=== PATIENT | male | born 1985 | race Caucasian/White ===

== ENCOUNTER 2018-02-18 14:29 | Emergency (ER) | payer SELFPAY ==
[2018-02-18 14:30] VITALS: BP 166/116; PULSE 75; RESP 16; TEMP 36.7; O2SAT 97; BMI 42.8
--- NOTE | 2018-02-18 15:21 | ED.DCSUM_ITS ---
- ER Visit Summary Date of Service: 02/18/18 Chief Complaint: Cough History of Present Illness: The patient is a 32 M with a cough for 2 weeks. He has some occasional clear sputum. Associated with right side chest pain that wraps around to the back. No shortness of breath. He does have subjective fevers, nasal congestion, and a dry, sore throat. No abdominal pain or GI symptoms. No leg swelling. No history of DVT or PE. No history of recent surgery or travel. No immobilization. No leg pain or swelling. No history of cancer. No history of lung disease or heart disease. Occasional smoker. Physical Examination: Afebrile and vital signs unremarkable except for a blood pressure 166/116. No acute distress. Sitting, breathing, speaking comfortably. HEENT exam unremarkable. Heart regular rate and rhythm. Lungs clear in all guillaume. Skin normal in color. Calves soft and supple. Test Results: Chest x-ray is pending. Emergency Department Course and Treatment: Patient is PERC negative. Nothing to suggest ACS or vascular disease. This sounds infectious. Will check an x-ray and treat accordingly. X-rays negative. Given the duration of his symptoms, he will be treated for this case and presumed bronchitis. He was given a prescription for doxycycline and Tessalon Perles. Return for any new or worsening symptoms. Treatment Plan: As above Disposition: Discharge Impression: 1. Acute bronchitis This note was generated with [employer] dictation software. It may contain incorrect words, spelling, and punctuation that were not noted in review of the chart prior to signing ED Disposition - Plan for ED Patient: Chief Complaint: Cough Referrals: Care Physician,No Primary [Primary Care Provider] -
--- NOTE | 2018-02-18 15:33 | RAD_ITS ---
STUDY: X-RAY CHEST REASON FOR EXAM: Male, 32 years old. Cough for one month. TECHNIQUE: PA and lateral views of the chest. COMPARISON: Prior comparison studies are not available for review at this time. FINDINGS: The lungs are clear and expanded. There is no demonstrated pleural abnormality. Normal size heart. Normal mediastinum and rosalva. Normal visualized pulmonary arteries. Normal visualized aortic arch and descending thoracic aorta. Normal visualized thoracic spine. Normal visualized ribs, clavicles, and shoulders. There is no demonstrated abnormality of the visualized soft tissue structures of the upper abdomen. RAD/Chest PA and Lateral IMPRESSION: No active pulmonary disease. Electronically Signed: Alberto Jiménez MD at 15:43 EDT Tel , Service support ,
--- NOTE | 2018-02-18 15:50 | ED.DEP ---
ED Disposition - Plan for ED Patient: Chief Complaint: Cough Instructions: ED Upper Resp Infec Abx Tx Prescriptions: Benzonatate [Tessalon Perle] 100 mg PO TID PRN PRN #15 cap PRN Reason: Cough Doxycycline Monohydrate 100 mg PO BID #14 cap
[2018-02-18 16:08] VITALS: BP 150/90; PULSE 100; RESP 18; O2SAT 98
--- NOTE | 2018-02-20 10:56 | CM.ED ---
ED CALLBACK: Follow-up call placed to patient with no answer. Voicemail left with return contact information.
== END 2018-02-18 16:10 | disposition home or self-care (01) ==
PROVIDERS: Emergency Provider Emergency Medicine
DX: J20.9 Acute bronchitis, unspecified (principal); Z72.0 Tobacco use
CPT/HCPCS: 71046; 99282

== ENCOUNTER 2018-04-27 06:39 | Emergency (ER) | payer MEDICAID, SELFPAY ==
[2018-04-27 06:40] VITALS: BP 193/111; PULSE 83; RESP 18; TEMP 36.6; O2SAT 96; BMI 42.4
--- NOTE | 2018-04-27 06:56 | CT_ITS ---
STUDY: CTA CHEST REASON FOR EXAM: Male, 33 years old. 2 month history of chest pain. Patient has a history of a benign spinal tumor. RADIATION DOSAGE (If Supplied By Facility): CTDIvol = ( 25.87 ) mGy, DLP = ( 1041.96 ) mGycm TECHNIQUE: The examination was performed with the intravenous administration of 100mL ml of Isovue 370 contrast material. Post-processing of the angiographic images was performed, with multiplanar reformation and 3D reconstruction. Individualized dose optimization techniques were used for this CT. COMPARISON: None. FINDINGS: There is a 2.2 cm x 2.3 cm rounded soft tissue density arising from the right intervertebral foramen on the T8 vertebrae. This is suggestive of a neurofibroma or schwannoma. Normal enhancement of the main pulmonary artery and right and left pulmonary arteries. Normal enhancement of the bilateral peripheral pulmonary arteries. There is no demonstrated pulmonary embolism. Normal thoracic aorta and visualized great vessels. There is no demonstrated aortic dissection. Normal heart and pericardium. There are visualized mediastinal lymph nodes, which are within normal size limits, and with normal morphology. Normal hilar regions. Normal visualized trachea and bronchi. The lungs are well expanded. Normal pulmonary parenchyma. Normal pleura. Normal chest wall structures. Normal osseous structures. Normal visualized upper abdomen. CT/CTA Chest W/WO Contrast IMPRESSION: Normal CTA chest examination, without a demonstrated pulmonary embolism or arterial dissection. 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 Electronically Signed: Jimmie Alcantar MD at 8:39 EST Tel [phone], Service support ,
--- NOTE | 2018-04-27 06:56 | EKG12_ITS ---
Test Reason : BACK Blood Pressure : / mmHG Vent. Rate : 084 BPM Atrial Rate : 084 BPM P-R Int : 148 ms QRS Dur : 100 ms QT Int : 370 ms P-R-T Axes : 031 001 072 degrees QTc Int : 437 ms Normal sinus rhythm Moderate voltage criteria for LVH, may be normal variant Borderline ECG Confirmed by SHAHZAD SIERRA, JR ([id number]), manuscript editor SHANDA QUINTANA ([id number]) on 05/02/2018 11:14:59 AM Referred By: OSEAS Confirmed By:JR PIKE MD
[2018-04-27 07:25] LABS: Absolute Lymphocyte Count 3.62 X10^3/ul (0.83-4.51); Absolute Neutrophil Count 4.6 X10^3/uL (2.0-7.7); Basophil# 0.05 X10^3/uL; Basophil% 0.6 % (0-1); Eosinophil# 0.12 X10^3/uL; Eosinophils% 1.4 % (0-5); Hematocrit 40.4 % (40-54); Hemoglobin 13.9 g/dl (13.0-16.5); Lymphocyte # 3.62 X10^3/ul (4.0); Lymphocyte % 41.1 % (19-41); Mean Corp Hgb Conc 34.4 g/gl (32-36); Mean Corpuscular Hgb 27.5 pg (27.0-32.0); Mean Corpuscular Volume 79.8 fL (80-94); Mean Platelet Vol. 9.7 fl (6.2-12.0); Monocyte# 0.41 X10^3/uL; Monocyte% 4.7 % (0-10); Neutrophil % 52.1 % (47-70); Platelet Count 319 K/mm3 (150-450); RBC Distribution Width CV 13.1 % (11.6-14.6); RBC Distribution Width SD 37.6 fl (35.1-43.9); Red Blood Count 5.06 M/mm3 (4.6-6.2); White Blood Count 8.8 K/mm3 (4.4-11.0)
[2018-04-27] MEDS: 0.9% Normal Saline 1,000 ML 1000 ML IV (07:25)
[2018-04-27] MEDS: Morphine 4 MG/ML Syringe IV ×2 (07:25→08:35)
[2018-04-27 07:27] LABS: POSITIVE COUNT NO; POSITIVE DIFFERENTIAL NO; POSITIVE MORPHOLOGY NO
[2018-04-27 07:39] LABS: Anion Gap 10 (5-15); BUN 8 mg/dL (7-18); BUN/Creat Ratio 8.3 RATIO (10-20); Calcium,Total 8.7 mg/dL (8.5-10.1); Chloride 105 mmol/L (98-107); Creatinine, Serum 0.96 mg/dL (0.70-1.30); EST Glomerular Filtration Rate 96 mL/min (>60); Est Glom Filt Rate - Afr Amer 116 mL/min (>60); Estimated Creatinine Clearance 113.01 ml/min; Glucose 118 mg/dL (74-106); Potassium 3.5 mmol/L (3.5-5.1); Sodium Level 139 mmol/L (136-145)
[2018-04-27 07:43] VITALS: BP 162/104; PULSE 98; RESP 18; O2SAT 98
--- NOTE | 2018-04-27 07:49 | ED.VISSUMM ---
- ER Visit Summary Date of Service: 04/27/18 Chief Complaint: Back pain History of Present Illness: The patient is a 33 M with back pain that has been going on for about 2 months. He was hoping it would go away, but it got suddenly worse. He has some associated chest pain or shortness of breath with sweats. He has paresthesias in his arms. His blood pressure has been up. He does have a history of schwannoma and had prior thoracic spine surgery. Denies any history of cardiac disease, PE, or dissection. Physical Examination: Blood pressure 193/111. Otherwise vitals normal. Afebrile. Patient appears depressed and uncomfortable. Diaphoretic. Heart regular rate and rhythm. Lungs clear. Abdomen soft. Mid T spine tender to palpation. Subjective paresthesias in upper extremities. Good strength and range of motion. Normal pulses. The remainder of his exam is unremarkable. Test Results: EKG showed sinus rhythm at a rate of 84. CBC, BMP, troponin unremarkable. CTA pending. Emergency Department Course and Treatment: Patient may have myofascial back pain. I also considered pain from his schwannomas. I am also concerned because he has pain in his chest, he is hypertensive and diaphoretic. Treated with morphine and fluids. Will check EKG, labs, CTA. Lab work including troponin unremarkable. EKG showed sinus rhythm at a rate of 84. CT showed a 2.2 x 2.3 cm right side T8 mass concerning for schwannoma at the intervertebral foramen. Patient required additional pain medicine and Zofran. On reevaluation, he is much more comfortable. Diaphoresis has resolved. Blood pressure is 120/80. Patient will call his spine surgeon today for follow-up. He was given a prescription for Percocet and Zofran. Return for any new or worsening issues. Treatment Plan: As above Disposition: Discharge Impression: 1. Back pain 2. T8 schwannoma This note was generated with [employer] dictation software. It may contain incorrect words, spelling, and punctuation that were not noted in review of the chart prior to signing ED Disposition - Plan for ED Patient: Chief Complaint: Back Referrals: Care Physician,No Primary [Primary Care Provider] -
[2018-04-27] MEDS: Ondansetron 4 MG/2 ML Vial IV (08:33)
[2018-04-27 08:37] VITALS: BP 120/80; PULSE 63; RESP 18; O2SAT 97
--- NOTE | 2018-04-27 09:10 | ED.DEP ---
ED Disposition - Plan for ED Patient: Chief Complaint: Back Instructions: Common Myths About Pain Medications Prescriptions: Oxycodone HCl/Acetaminophen [Percocet 5/325] 1 tab PO Q6H PRN PRN 3 Days #12 tab PRN Reason: Pain Ondansetron [Zofran Odt] 4 mg PO Q8H PRN PRN #10 tab PRN Reason: Nausea Additional Instructions: call your spine surgeon today
[2018-04-27 10:16] VITALS: BP 95/73; PULSE 92; RESP 18; O2SAT 93
== END 2018-04-27 10:17 | disposition home or self-care (01) ==
PROVIDERS: Emergency Provider Emergency Medicine
DX: M54.9 Dorsalgia, unspecified (principal); D36.14 Benign neoplasm of peripheral nerves and autonomic nervous system of thorax; R07.9 Chest pain, unspecified; R06.02 Shortness of breath; R20.2 Paresthesia of skin; I10 Essential (primary) hypertension
CPT/HCPCS: 71275; 80048; 84484; 85025; 93005; 96361; 96374; 96375; 96376; 99285; J7030; Q9967; A4216; J2405

== ENCOUNTER 2019-11-01 11:48 | Emergency (ER) | payer SELFPAY ==
[2019-11-01 11:49] VITALS: BP 138/82; PULSE 106; RESP 17; TEMP 36.1; O2SAT 95; BMI 41.8
--- NOTE | 2019-11-01 11:59 | EKG12_ITS ---
Test Reason : DYSRHYTHMIA Blood Pressure : / mmHG Vent. Rate : 090 BPM Atrial Rate : 090 BPM P-R Int : 142 ms QRS Dur : 096 ms QT Int : 352 ms P-R-T Axes : 024 008 080 degrees QTc Int : 430 ms Normal sinus rhythm Minimal voltage criteria for LVH, may be normal variant Borderline ECG Confirmed by ASHLY SIERRA, CHUCKY ([id number]), loan expeditor IVANIA PATEL ([id number]) on 11/05/2019 8:10:26 AM Referred By: KAILEE Confirmed By:CHUCKY LIMON MD
[2019-11-01 12:15] VITALS: PULSE 110; RESP 20
[2019-11-01] MEDS: Albuterol 2.5 MG/3 ML VIAL.NEB. INHALATION (12:15)
[2019-11-01] MEDS: Ipratropium/Albuterol Sulfate 3 ML AMPUL.NEB INHALATION (12:15)
--- NOTE | 2019-11-01 12:32 | ED.VIS.GEN ---
History of Present Illness Chief Complaint: Cough Informant: Patient Onset: Month(s) Context: Gradual Onset Timing: Intermittent Current Severity: Moderate Maximum Severity: Moderate Narrative: The patient is a 34-year-old male with medical history significant for smoking who presents to the emergency department with cough and intermittent shortness of breath. The patient states he is been having the symptoms for the past 3 months. He states he is been to urgent care twice. He thinks his been on medications, but he does not know which. He denies any fevers or chills. He states when he exerts himself, he will feel dyspneic and will have cough and wheezing. He has continued to smoke. He denies any exposure to COVID. He denies orthopnea, leg edema, or history of pulmonary embolus. Prior similar symptoms: Yes Recent Illness/Hospitalization: No Past Medical History - Allergies and Home Meds Allergies/Adverse Reactions: Allergies naproxen Allergy (Verified 11/01/19 11:48) [facility] Primary Care Physician: Care Physician,No Primary [Primary Care Provider] - Prior records reviewed: Yes Past Medical History: None Surgical History: noncontributory Smoking Status: Never smoker Review of Systems General: Denies: Chills, Fever, Sweats Eyes: Denies: Visual changes - bilaterally, Diplopia ENT: Denies: Rhinorrhea, Sore throat Cardiovascular: Denies: Chest pain, Palpitations Respiratory: Reports: Dyspnea, Cough. Denies: Dyspnea on exertion Gastrointestinal: Denies: Abdominal pain, Nausea, Vomiting, Diarrhea, Melena, Hematochezia Genitourinary: Denies: Dysuria, Hematuria, Frequency Musculoskeletal: Denies: Back pain, Extremity Pain Skin: Denies: Rash, Wounds Neurological: Denies: Headache, Weakness, Numbness Physical Exam Vital Signs/Narrative: Vital Signs Temp Pulse Resp BP Pulse Ox 11/01/19 11:49 96.9 F L 106 H 17 138/82 H 95 Inital Vital Signs reviewed: Yes General: Well nourished, Well developed, No Acute Distress Head: Normocephalic, Atraumatic Eyes: Perrl, EOMI ENT: Moist mucous membranes, No rhinorrhea Neck: Supple, Nontender Cardiovascular: Regular rate, Regular rhythm, No murmurs Respiratory: No distress, Chest nontender, Wheezing, Decreased Air Movement Abdomen: Soft, Nontender, Nondistended, Normal bowel sounds Back: Nontender, Normal Inspection Extremities: Nontender, No edema Skin: Normal color, No rash Neurological: Alert, Oriented x3, Cranial nerves II-XII grossly intact, Normal Strength, Normal Sensation Psychological: Normal affect, Normal Mood Diagnostic/Tx/Re-eval - Medical Decision Making The patient presents with cough and shortness of breath. He said the symptoms for the past 3 months. He does have a scant wheeze. He is not hypoxic or tachypneic. I did obtain chest x-ray which was unremarkable. Labs and EKG were also unremarkable. I do feel that the patient likely has persistent bronchial inflammation. He has gone through 2 rounds of antibiotics with little improvement. After nebulized treatment, he is breathing easier. I do feel that a prolonged steroid burst and taper would be appropriate. He was also counseled on abstaining from smoking. He will be discharged home. Impression 1. Asthma with bronchospasm ED Disposition - Plan for ED Patient: Instructions: ED Bronchitis Asthmatic Prescriptions: Prednisone 10 mg PO DAILY #63 tab Prescription Printed Referrals: Care Physician,No Primary [Primary Care Provider] -
--- NOTE | 2019-11-01 12:35 | CPS ---
x1 Albuterol given to pt. in ED as well
[2019-11-01 12:51] LABS: Absolute Lymphocyte Count 4.97 X10^3/uL (0.83-4.51); Absolute Neutrophil Count 6.1 X10^3/uL (2.0-7.7); Basophil% 0.8 % (0-1); Eosinophil# 0.09 X10^3/uL; Eosinophils% 0.8 % (0-5); Hematocrit 45.4 % (40-54); Hemoglobin 15.2 g/dL (13.0-16.5); Lymphocyte # 4.97 X10^3/ul (4.0); Lymphocyte % 41.5 % (19-41); Mean Corp Hgb Conc 33.5 g/dL (32-36); Mean Corpuscular Hgb 27.6 pg (27.0-32.0); Mean Corpuscular Volume 82.5 fL (80-94); Mean Platelet Vol. 10.2 fl (6.2-12.0); Monocyte# 0.65 X10^3/uL; Monocyte% 5.4 % (0-10); NRBC Flagged by Analyzer 0 % (0-5); Neutrophil # 6.13 X10^3/uL (2.7-7.7); Neutrophil % 51.2 % (47-70); Platelet Count 333 K/mm3 (150-450); RBC Distribution Width SD 38.6 fl (35.1-43.9)
[2019-11-01 13:09] LABS: Anion Gap 7 (5-15); BUN 13 mg/dL (7-18); BUN/Creat Ratio 13.1 RATIO (10-20); Calcium,Total 9.1 mg/dL (8.5-10.1); Chloride 107 mmol/L (98-107); Creatinine, Serum 0.99 mg/dL (0.70-1.30); EST Glomerular Filtration Rate 91 mL/min (>60); Est Glom Filt Rate - Afr Amer 111 mL/min (>60); Estimated Creatinine Clearance 108.56 ml/min; Glucose 106 mg/dL (74-106); Potassium 3.6 mmol/L (3.5-5.1); Sodium Level 140 mmol/L (136-145)
--- NOTE | 2019-11-01 13:10 | RAD_ITS ---
STUDY: X-RAY CHEST REASON FOR EXAM: Male, 34 years old. COUGH AND SOB x2 MONTHS TECHNIQUE: PA and lateral views of the chest. COMPARISON: Comparison is made with prior study dated February 18, 2018. FINDINGS: The lungs are clear and expanded. There is no demonstrated pleural abnormality. Normal size heart. Normal mediastinum and rosalva. Normal visualized pulmonary arteries. Normal visualized aortic arch and descending thoracic aorta. Normal visualized thoracic spine. Normal visualized ribs, clavicles, and shoulders. There is no demonstrated abnormality of the visualized soft tissue structures of the upper abdomen. RAD/Chest PA and Lateral IMPRESSION: Normal x-ray examination of the chest. Electronically Signed: Jimmie Alcantar, at 14:01 EDT , Service support ,
[2019-11-01] MEDS: MethylPREDNISolone 125 MG/2 ML Vial IV (13:13)
[2019-11-01 13:16] VITALS: RESP 17; O2SAT 95
[2019-11-01 13:26] VITALS: BP 131/95; PULSE 101; RESP 24; TEMP 36.6; O2SAT 95
[2019-11-01 14:39] VITALS: BP 122/73; PULSE 98; RESP 20; TEMP 36.7; O2SAT 97
== END 2019-11-01 14:45 | disposition home or self-care (01) ==
PROVIDERS: Emergency Provider Emergency Medicine
DX: J45.909 Unspecified asthma, uncomplicated (principal); Z79.899 Other long term (current) drug therapy
CPT/HCPCS: 71046; 80048; 85025; 93005; 94640; 96374; 99284; A4216

== ENCOUNTER 2020-01-12 17:06 | Emergency (ER) | payer MEDICAID, SELFPAY ==
[2020-01-12 17:07] VITALS: BP 126/86; PULSE 87; RESP 14; TEMP 36.4; O2SAT 97; BMI 49.3
--- NOTE | 2020-01-12 17:36 | ED.VIS.GEN ---
History of Present Illness Chief Complaint: Abd Pain Informant: Patient Narrative: Patient is a 34-year-old male who presents to the emergency department for right upper quadrant/midline abdominal pain. He states that this has been bothering him over the past couple of months. He was diagnosed with a abdominal wall hernia previously. This was an incidental finding and did not bother him at that time so he never got this evaluated further by his surgeon. He feels like this is starting to flareup. He has a 7-month at home and that has been sitting on his abdomen making his symptoms worse. Bending over seems to aggravate it as well. He does occasionally get nauseous but never had any episodes of vomiting. Denies any change in bowel habits. No constipation, diarrhea or blood in stool. He denies any fevers or chills. At this time he denies having any abdominal pain. He had 3 episodes today where it did flareup. He denies any previous abdominal surgeries. Denies any chest pain or shortness of breath. Past Medical History - Allergies and Home Meds Allergies/Adverse Reactions: Allergies naproxen Allergy (Verified 01/12/20 17:07) [facility] Primary Care Physician: Luis Reyes MD [STAFF PHYSICIAN] - 3-5 Days if not improving Care Physician,No Primary [Primary Care Provider] - Prior records reviewed: Yes Past Medical History: - - History of schwannomas requiring resection on the spine. Surgical History: noncontributory Smoking Status: Never smoker Review of Systems All systems negative except as indicated General: Denies: Chills, Fever, Sweats Eyes: Denies: Visual changes - bilaterally, Diplopia ENT: Denies: Rhinorrhea, Sore throat Cardiovascular: Denies: Chest pain, Palpitations Respiratory: Denies: Dyspnea, Cough, Dyspnea on exertion Gastrointestinal: Reports: Abdominal pain, Nausea. Denies: Vomiting, Diarrhea, Melena, Hematochezia Genitourinary: Denies: Dysuria, Hematuria, Frequency Musculoskeletal: Denies: Back pain, Extremity Pain Skin: Denies: Rash, Wounds Neurological: Denies: Headache, Weakness, Numbness Physical Exam Vital Signs/Narrative: Vital Signs Temp Pulse Resp BP Pulse Ox 01/12/20 17:07 97.6 F L 87 14 126/86 H 97 Inital Vital Signs reviewed: Yes General: Well nourished, Well developed, No Acute Distress Head: Normocephalic, Atraumatic Eyes: Perrl, EOMI ENT: Moist mucous membranes, No rhinorrhea Neck: Supple, Nontender Cardiovascular: Regular rate, Regular rhythm, No murmurs Respiratory: No distress, CTA bilaterally, Chest nontender Abdomen: Soft, Nontender, Nondistended, Normal bowel sounds, - - When patient lifts head off the bed a midline abdominal hernia present but reduces spontaneously. Back: Nontender, Normal Inspection Extremities: Nontender, No edema Skin: Normal color, No rash Neurological: Alert, Oriented x3 Psychological: Normal affect, Normal Mood Diagnostic/Tx/Re-eval - Medical Decision Making Patient presents emerge department for chronic abdominal pain. He believes that that is related to a hernia. Physical exam is benign without any reproducible abdominal pain. Vital signs within normal limits upon arrival. He is in no acute distress. Will check basic lab work. We will plan on referring to general surgery for further evaluation of this hernia since it is starting to cause him some pain now. No symptoms of obstruction. No symptoms or signs of incarceration. He has been asymptomatic throughout ED stay. Will recommend symptomatic treatment until he can be seen by general surgery. Patient understands and is agreeable this plan. Will discharge home in stable condition. ED Disposition - Plan for ED Patient: Disposition: Home or Assisted Living Diagnosis: Abdominal wall hernia, Abdominal pain Instructions: What Is a Hernia? Referrals: Care Physician,No Primary [Primary Care Provider] - Luis Reyes MD [STAFF PHYSICIAN] - 3-5 Days if not improving
[2020-01-12 17:57] LABS: Absolute Lymphocyte Count 3.47 X10^3/uL (0.83-4.51); Absolute Neutrophil Count 5.1 X10^3/uL (2.0-7.7); Basophil% 1.1 % (0-1); Eosinophil# 0.13 X10^3/uL; Eosinophils% 1.4 % (0-5); Hematocrit 42.3 % (40-54); Hemoglobin 14.1 g/dL (13.0-16.5); Lymphocyte # 3.47 X10^3/ul (4.0); Mean Corp Hgb Conc 33.3 g/dL (32-36); Mean Corpuscular Hgb 27.1 pg (27.0-32.0); Mean Corpuscular Volume 81.3 fL (80-94); Mean Platelet Vol. 9.9 fl (6.2-12.0); Monocyte# 0.61 X10^3/uL; Monocyte% 6.5 % (0-10); NRBC Flagged by Analyzer 0 % (0-5); Neutrophil # 5.06 X10^3/uL (2.7-7.7); Neutrophil % 53.9 % (47-70); Platelet Count 336 K/mm3 (150-450); RBC Distribution Width CV 12.7 % (11.6-14.6); RBC Distribution Width SD 37.6 fl (35.1-43.9); White Blood Count 9.4 K/mm3 (4.4-11.0)
[2020-01-12 18:14] LABS: ALB/GLOB Ratio 0.8 RATIO (0.9-2.4); AST(SGOT) 23 U/L (15-37); Alanine Aminotransfer ALT/SGPT 42 U/L (16-61); Albumin, Serum 3.6 g/dL (3.2-5.0); Alkaline Phosphatase 49 U/L (45-117); Anion Gap 8 (5-15); BUN 11 mg/dL (7-18); Calcium,Total 8.8 mg/dL (8.5-10.1); Chloride 105 mmol/L (98-107); EST Glomerular Filtration Rate 91 mL/min (>60); Est Glom Filt Rate - Afr Amer 110 mL/min (>60); Estimated Creatinine Clearance 90.54 ml/min; Globulin 4.4 g/dL (2.2-4.2); Glucose 103 mg/dL (74-106); Lipase 117 U/L (73-393); Potassium 3.6 mmol/L (3.5-5.1); Sodium Level 140 mmol/L (136-145)
[2020-01-12 18:37] VITALS: BP 145/93; PULSE 87; RESP 18
== END 2020-01-12 18:38 | disposition home or self-care (01) ==
PROVIDERS: Emergency Provider Emergency Medicine
DX: K43.9 Ventral hernia without obstruction or gangrene (principal); R10.11 Right upper quadrant pain; G89.29 Other chronic pain; R11.0 Nausea
CPT/HCPCS: 80053; 83690; 85025; 99282; A4216

== ENCOUNTER → 2020-01-21 08:45 | Outpatient (CLI) | payer MEDICAID, SELFPAY ==
[2020-01-15 15:24] VITALS: BMI 41.6
--- NOTE | 2020-01-21 08:46 | US_ITS ---
STUDY: ABDOMINAL ULTRASOUND - RIGHT UPPER QUADRANT REASON FOR VISIT: Male, 34 years old ruq pain x 3 months TECHNIQUE: Ultrasound evaluation of the right upper quadrant was performed with real-time and static turcios-scale imaging. TECHNICAL QUALITY: Adequate. COMPARISON: None. FINDINGS: Liver: The liver measures 18 cm. There is increased echogenicity consistent with fatty infiltration. The bile ducts are within normal limits. There is hepatic color flow. The direction of portal flow is hepatopetal. There is no demonstrated mass lesion. Gallbladder: Normal distended gallbladder. The gallbladder wall measures 2.2 mm. There is a negative sonographic Burks''s sign. There is no pericholecystic fluid. There are either 3 small polyps in the gallbladder versus gallbladder sludge balls. Largest of which measures 7 mm. Common Bile Duct (C.B.D.): The common bile duct measures 2.5 mm. Pancreas: Normal size of the head, body and tail of the pancreas. There is increased echogenicity of the pancreas. There is no demonstrated pancreatic mass or cyst. Right Kidney: Normal size of the right kidney. The right kidney measures 12 cm. Normal renal cortex. The right cortex measures 1.9 cm. There is no demonstrated renal mass or cyst. There is no right hydronephrosis. US/Gallbladder IMPRESSION: 1. Fatty steatosis of the liver 2. Possible gallbladder polyps versus small sludge balls 3. Nonspecific echogenicity of the pancreas Electronically Signed: Maxi Beckham DO at 12:47 EDT Tel , Service support ,
== END ==
PROVIDERS: Referring Provider Surgery; Visit Provider Surgery
DX: R10.9 Unspecified abdominal pain (principal)
CPT/HCPCS: 76705

== ENCOUNTER 2020-01-22 11:05 | Emergency (ER) | payer MEDICAID, SELFPAY ==
[2020-01-15 15:59] VITALS: BMI 49.3
[2020-01-22 11:06] VITALS: BP 131/88; PULSE 95; RESP 17; TEMP 35.4; O2SAT 97; BMI 41.5
[2020-01-22] MEDS: Acetaminophen 500 MG Tablet 1000 MG PO (11:51)
--- NOTE | 2020-01-22 11:55 | RAD_ITS ---
STUDY: X-RAY CHEST REASON FOR EXAM: Male, 34 years old. Productive cough, sore throat, congestion TECHNIQUE: Single AP portable view of the chest. COMPARISON: Comparison is made with prior study dated 11/01/2019. FINDINGS: The lungs are clear and expanded. There is no demonstrated pleural abnormality. Normal size heart. Normal mediastinum and rosalva. Normal visualized pulmonary arteries. Normal visualized aortic arch and descending thoracic aorta. Normal visualized thoracic spine. Normal visualized ribs, clavicles, and shoulders. There is no demonstrated abnormality of the visualized soft tissue structures of the upper abdomen. RAD/Chest 1 View (Portable) IMPRESSION: Normal x-ray examination of the chest. Electronically Signed: Jimmie Alcantar, at 12:14 EDT , Service support ,
--- NOTE | 2020-01-22 12:01 | ED.DCSUM_ITS ---
History of Present Illness Chief Complaint: Cold Sx Informant: Patient Onset: Yesterday Context: Gradual Onset Timing: Continuous Associated Symptoms: Nasal Congestion, Headache, Productive Cough Narrative: Patient is a 34-year-old male presenting with flulike symptoms. He states since yesterday he has had nasal congestion, hot and cold chills, sore throat and a mild cough. He notes his 7-month-old daughter was sick with a fever for the past few nights but has seemed improved. His significant other is also had some similar symptoms. He is a decreased appetite. Is not taking anything for his symptoms at home. He became concerned when he was blowing his nose and there was a red tinge/blood to it. Patient has been sweating all day. No other complaints at this time. Past Medical History - Allergies and Home Meds Allergies/Adverse Reactions: Allergies naproxen Allergy (Verified 01/22/20 11:08) Hives Primary Care Physician: Donald Hernandez MD [STAFF PHYSICIAN] - Past Medical History: None Surgical History: noncontributory Lives: Spouse/ Significant Other, With Family Smoking Status: Never smoker Review of Systems General: Reports: Chills, Fever, Malaise, Sweats, - - Decreased appetite Eyes: Denies: Visual changes - bilaterally, Diplopia ENT: Reports: Sore throat, - - Nasal congestion. Denies: Bilateral ear pain, Rhinorrhea Cardiovascular: Denies: Chest pain, Palpitations Respiratory: Reports: Cough, Sputum. Denies: Dyspnea, Dyspnea on exertion Gastrointestinal: Denies: Abdominal pain, Nausea, Vomiting, Diarrhea, Melena, Hematochezia Genitourinary: Denies: Dysuria, Hematuria, Frequency Musculoskeletal: Denies: Back pain, Extremity Pain Skin: Denies: Rash, Wounds Neurological: Denies: Headache, Weakness, Numbness Physical Exam Vital Signs/Narrative: Vital Signs Temp Pulse Resp BP Pulse Ox 01/22/20 11:06 95.7 F L 95 17 131/88 H 97 Inital Vital Signs reviewed: Yes General: Well nourished, Well developed, Obese Head: Normocephalic, Atraumatic Eyes: Perrl, EOMI Ears: Normal external canal, TM's clear Nose: No Rhinorrhea, Congestion Mouth/Throat: Normal Inspection, Airway Patent, Posterior Oropharyngeal Erythema Tonsils: Negative for: Right Tonsilar Erythema, Left Tonsilar Erythema, Right Tonsilar Exudates, Left Tonsilar Exudates Neck: Supple, Nontender Cardiovascular: Regular rate, Regular rhythm, No murmurs Respiratory: No distress, CTA bilaterally, Chest nontender Abdomen: Soft, Nontender, Nondistended, Normal bowel sounds Back: Nontender, Normal Inspection Extremities: Nontender, No edema Skin: Normal color, No rash, - - Sweating during exam Neurological: Alert, Oriented x3, Cranial nerves II-XII grossly intact, Normal Strength, Normal Sensation Psychological: Normal affect Diagnostic/Tx/Re-eval Chest X-Ray - ED: 1 View, Read by ED Physician, Read by Radiologist, No Acute Disease Clinical Impression(s) from Imaging Studies Chest X-Ray 01/22/20 11:55 IMPRESSION: Normal x-ray examination of the chest. Electronically Signed: Jimmie Alcantar, at 12:14 EDT , Service support , - Medical Decision Making Patient is evaluated for sweats, nasal congestion and cough. He is hemodynamically stable and does not have a fever in the ER. Patient appears he does not feel good but is otherwise well-appearing. He is given Tylenol in the ER and I did obtain a chest x-ray as he reports he is having hemoptysis. I suspect this is all upper respiratory. His orange sputum is actually blood- tinged sputum that I suspect is from his sinuses. Chest x-rays not show any acute process. Patient will be swabbed for coronavirus given his symptoms and the current pandemic. Patient is counseled on return precautions. He is encouraged to quarantine until his results come back as he potentially could have COVID-19. He is instructed to take [id number] decongestant/cold and flu medication for her symptoms. He is discharged home in stable condition. ED Disposition - Plan for ED Patient: Disposition: Home or Assisted Living Diagnosis: Suspected COVID-19 virus infection, Viral upper respiratory illness Instructions: ED URI Viral Prescriptions: Dm/PE/Acetaminophen/Doxylamine [Cold & Relief Plus Liquid Gel] 1 ea PO Q6H PRN PRN #20 cap.seq PRN Reason: Cold Symptons Transmission Status: Received by [id number] Referrals: Donald Hernandez MD [STAFF PHYSICIAN] - Additional Instructions: I suspect you have a respiratory illness of some sort. Is possible it could be COVID. Please quarantine and stayed home until your COVID results have returned. Drink plenty of fluids.
== END 2020-01-22 12:43 | disposition home or self-care (01) ==
PROVIDERS: Emergency Provider Emergency Medicine
DX: J06.9 Acute upper respiratory infection, unspecified (principal); R04.2 Hemoptysis; E66.9 Obesity, unspecified
CPT/HCPCS: 71045; 87635; 99283; U0003

== ENCOUNTER → 2020-11-28 07:04 | Outpatient (CLI) | payer BC, MEDICAID, SELFPAY ==
[2020-02-04 09:12] VITALS: BMI 41.5
--- NOTE | 2020-11-28 | ASPOS_PTH ---
PATIENT: KHOA CARDENAS LOC: [place] U#:[id number] AGE/SX: 39/M ROOM: RE11/28/[address]: Dr. Robert Gonzalez MD : 1985 BED: DIS: SPEC #: [id number] RECD: 11/28/20 10:29 STATUS: RAFAEL LOYDA #: [id number] SAVANNAH: 11/28/20 00:[address]: Robert Gonzalez DEPT: CYTOLOGY RECD BY: Charles Auguste ENTERED: 11/28/20 10:29 SP TYPE: ASP HERE OTHR DR: No Primary Care Phys Tissues: Neck, NOS Procedures: Surgery Specimen Level IV Cytology Other Fine Needle Asp on Site HEADER OPERATION: Fine needle aspiration left neck mass PRE-OP DIAGNOSIS: Left neck mass TISSUE SUBMITTED: Left neck mass DIAGNOSIS CYTOLOGY Fine needle aspiration, left neck mass (smears and cell block): Benign spindle cells and skeletal muscle cells. No evidence of malignancy. See comment. AM:ko 12/01/2020 COMMENT The specimen is evaluated at the time of FNA by Dr. Claros. Immediate Evaluation = Benign appearing spindle cells and skeletal muscle cells present. Negative for malignant cells. Imaging studies reveal the mass in the left neck to be necrotic and worrisome for metastatic malignancy. Clinical correlation is necessary. An incisional or excisional biopsy is recommended for definite classification. Case has been reviewed in consultation with Dr. Bates who concurs with the above diagnosis. IDC:SJ CYTOLOGY STUDY Slides are reviewed. CYTOLOGY GROSS Received is 0.1 ml of reddish-marie fluid labeled with the patient's name, and designated left neck mass. Four imprints and two paps are made from the submitted fluid and the rest is added to CytoLyt for cell block preparation. Submitted for cytology study. / AM:ko 11/28/2020 TC:5 CPT: 07460, 72863, 38873, 57036
--- NOTE | 2020-11-28 07:08 | CT_ITS ---
STUDY: CT SOFT TISSUE NECK WITH CONTRAST REASON FOR EXAM: Male, 35 years old. LFT NECK MASS RADIATION DOSAGE (If Supplied By Facility): CTDIvol = ( 18.73 ) mGy, DLP = ( 613.12 ) mGycm TECHNIQUE: The patient was scanned in a multi-detector CT scanner. High resolution transaxial imaging was performed following intravenous administration of . Sagittal and coronal images were reconstructed. Individualized dose optimization techniques were used for this CT. COMPARISON: None. FINDINGS: Normal bilateral parotid glands. Normal bilateral silver solution mixer spaces. Normal bilateral parapharyngeal spaces. Normal bilateral carotid spaces. Normal bilateral sublingual and submandibular glands and spaces. Normal visualized nasopharynx. Normal retropharyngeal space. Normal perivertebral space. Normal visualized bilateral faucial tonsils. The visualized tongue, tongue base and oropharynx are normal. Necrotic left jugular lymphadenopathy at the level before the mouth measuring 2.6 x 3.8 cm worrisome for metastatic lymphadenopathy. This corresponds to the patient''s palpable abnormality. At the level of the thyroid gland, there is left jugular lymphadenopathy measuring 2.0 x 2.5 cm. There is no demonstrated solid or cystic mass lesion. There is no abnormal contrast enhancement. Normal epiglottis, bilateral vallecula and hypopharynx. The pre-epiglottic and paraglottic adipose spaces are normal. Normal visualized bilateral piriform sinuses, aryepiglottic folds, vocal cords, and arytenoid-cricoid articulations. Normal subglottic trachea. Normal bilateral lobes of the thyroid gland. Normal visualized pulmonary apices. Mucous retention cyst in the floor the maxillary sinuses consistent with chronic sinusitis. Normal visualized cervical spine. CT/Soft Tissue Neck WITH Contrast IMPRESSION: Suspect metastatic left jugular lymphadenopathy without obvious primary mass. Clinical correlation is recommended. Alternatively, findings may be secondary to purulent infection. Electronically Signed: Guilherme Villanueva MD at 12:09 EDT Tel , Service support ,
== END ==
PROVIDERS: Referring Provider Otolaryngology Otolaryngology/Facial Plastic Surgery; Visit Provider Otolaryngology Otolaryngology/Facial Plastic Surgery
DX: R22.0 Localized swelling, mass and lump, head (principal)
CPT/HCPCS: 10021; 70491; 88161; 88305; Q9967

== ENCOUNTER 2023-11-07 13:15 | Emergency (ER) | payer SELFPAY ==
[2023-11-07] VITALS (8 sets, daily range): BP systolic 122–138; BP diastolic 76–103; PULSE 77–91; RESP 16–20; TEMP 35.1–36.6; O2SAT 97–99; BMI 35.7
--- NOTE | 2023-11-07 13:48 | EKG12_ITS ---
Test Reason : CP Blood Pressure : / mmHG Vent. Rate : 074 BPM Atrial Rate : 074 BPM P-R Int : 136 ms QRS Dur : 094 ms QT Int : 390 ms P-R-T Axes : 027 009 074 degrees QTc Int : 432 ms Normal sinus rhythm Minimal voltage criteria for LVH, may be normal variant ( R in aVL ) Borderline ECG Confirmed by MUNIR SIERRA, YANETH ([id number]), index editor MORENO COLÓN ([id number]) on 11/09/2023 9:58:17 AM Referred By: Confirmed By:CALEB AMARAL MD
--- NOTE | 2023-11-07 13:50 | EDS_ITS ---
HPI History of Present Illness Chief Complaint: Chest Pain Informant: patient Onset/Context/Timing Onset: Days Activity at onset: sudden Timing: Continuous Quality: Positive for Aching and Sharp Location: Substernal (Lower) and Left Chest Worsened By: - (Stress) Relieved By: Nothing Associated Symptoms: Positive for Nausea, Vomiting, Diaphoresis, Dyspnea, Cough, Fever, Lightheadedness and Palpitations; Negative for Acid Reflux Narrative Narrative: Patient presents with chest pain that has been waxing and waning over the past couple days. Patient states that it came on rather suddenly. Patient describes her pain as constant aching but sharp at times. Patient states it is over the left upper chest. Patient states he also noted some pain over the lower substernal area. Patient states it is worse with stress. Patient states nothing makes it better. Patient admits to some nausea and vomiting. Patient admits to some diaphoresis and shortness of breath. Patient also admits to a mild fever and cough. Patient states at times he feels like his heart is racing. Patient states sometimes he feels lightheaded. CVD Risk Factors: Negative for Hypertension, Diabetes, Hypercholesterolemia, Family History 1' </=55 or Smoking PE Risk Factors: Negative for Recent Travel/Surgery, Recent Immobilization, Prior DVT or PE, Cancer or OCP + Smoking + >/=35 PFSH [facility] Medical History (Updated 11/07/23 @ 17:[address] Donald Mccoy, DO) History of benign schwannoma Anxiety and depression Back pain Sleep apnea GERD (gastroesophageal reflux disease) Home Medications ?Medication ?Instructions ?Recorded ?Last Taken ?Type kbmhlchrof-[id number]-ZV-acetamin 6.25 1 ea PO Q6H PRN PRN Cold Symptons 01/22/20 Unknown Rx mg-5 mg-10 mg-325 mg day/night ##20 capsules montelukast 10 mg tablet 10 mg PO DAILY 02/04/20 Unknown History (Singulair) omeprazole 20 mg capsule,delayed 20 mg PO DAILY #60 caps 02/04/20 Unknown Rx release Allergy/AdvReac Type Severity Reaction Status Date / Time naproxen Allergy Hives Verified 11/07/23 13:16 Family History Father Diabetes Heart disease Hypertension Mother CVA (cerebral vascular accident) Schwannoma Surgical History History of excision of mass Social History Smoking Status: Never smoker ROS ROS ED Constitutional Constitutional ED: Denies chills or fever(s) Eyes Eyes: Denies blurry vision or change in vision ENT ENT ED: Denies rhinorrhea or sore throat Cardiovascular Cardiovascular: Reports as per HPI, chest pain, palpitations and racing heartbeat Respiratory/Chest Respiratory/Chest: Reports cough and dyspnea Gastrointestinal Gastrointestinal: Reports nausea and vomiting Genitourinary Genitourinary ED: Denies dysuria or hematuria Musculoskeletal Musculoskeletal: Reports back pain and neck pain Integumentary Denies abscess or rash Neurologic Neurologic: Reports headache(s); Denies weakness Allergic/Immunologic Allergic/Immunologic ED: Denies mouth swelling or urticaria EXAM Physical Exam Const Vital Signs: 11/07/23 13:16 Temperature 95.1 F L Temperature Source Temporal Pulse Rate 83 Respiratory Rate 18 Blood Pressure 138/103 H Blood Pressure Mean 114 Pulse Ox 97 Oxygen Delivery Method Room Air Positive well nourished and well developed General Appearance ED: well developed and NAD HEENT Reports moist mucous membranes Neck supple and no JVD Resp normal respiratory effort and clear to auscultation bilaterally Cardio regular rate and regular rhythm GI soft to palpation, non-tender and non-distended Extremity normal to inspection Neuro oriented x3, CN's II-XII intact bilaterally and no sensory deficits noted Sensorium / Orientation: awake and alert Motor Exam: strength 5/5 throughout Psych mental status grossly normal Heart Score History: Moderately Suspicious ECG: Normal Age: </= 45 years Risk Factors: No Risk Factors Troponin: </= Normal Limit Score: 1 MDM MDM MDM Narrative Medical decision making narrative: Differential diagnosis includes cardiac dysrhythmia, cardiac ischemia, pneumonia, pneumothorax, blood abnormality, musculoskeletal pain, GERD, and anxiety. EKG will be obtained to assess for cardiac dysrhythmia and cardiac ischemia. Chest x-ray will be obtained to assess for pneumonia and p neumothorax. CBC will be obtained to assess for leukocytosis and anemia. Basic metabolic profile will be obtained to assess for electrolyte abnormality and renal function. High-sensitivity troponin will be obtained to assess for cardiac ischemia. 2-hour repeat high-sensitivity troponin will be obtained to assess for ongoing cardiac ischemia. Lab Data Attestation: I reviewed the patient's lab results. Lab results narrative: CBC was reviewed and was within normal limits. Basic metabolic profile was reviewed and was within normal limits. Initial high-sensitivity troponin was reviewed and was normal at 70. 2-hour repeat high-sensitivity troponin was reviewed and was normal at 60. Radiography Chest X-Ray - ED: 1 View, Read by ED Physician, Read by Radiologist and No Acute Disease Diagnostic Testing: Portable 1 view chest x-ray was obtained. On my independent interpretation, lung guillaume are clear. There is normal cardiac silhouette. Bony thorax is normal. There is no acute process noted. Radiologist also interpreted the x- ray and agrees. EKG Initial EKG: Attestation: I personally reviewed and interpreted this EKG as follows: Interpretation: Sinus Rhythm (74) and No Acute Injury Pattern Comments: EKG was obtained. On my independent interpretation, it showed a normal sinus rhythm with a rate of 74. OH interval, QRS interval, and QTc intervals were all normal. [place] was normal. There is left ventricular hypertr ophy noted. There are no acute ST or T wave changes. Prior EKG tracings: available for review Prior: Unchanged (11/01/2019) Treatment and Re-Evaluation :: Patient was given aspirin here. Patient was advised of his findings. Patient has a HEART score of 1. Patient was advised that this is low risk for acute cardiac event. Patient was instructed to follow-up with his primary care physician in 5 to 7 days. Patient understood and was agreeable with the plan. All questions were answered. Discharge Plan Triage Chief Complaint: Chest Pain ED Provider: Donald Mccoy Dx/Rx/DC Orders Clinical Impression: Chest pain, Elevated blood pressure reading Instructions: ED Chest Pain, Uncertain Cause Prescriptions: No Action montelukast [Singulair] 10 mg tablet 10 mg PO DAILY omeprazole 20 mg capsule,delayed release(DR/EC) 20 mg PO DAILY Qty: 60 1RF [id number]-LN-KS-acetaminophen 1 EACH capsule, sequential 1 ea PO Q6H PRN PRN (Reason: Cold Symptons) Qty: 20 0RF Primary Care Provider: Chance Momin Referrals: Lata Khan MD [Med Staff - Environmental Services Manager] - 5-7 Days Care Physician,No Primary [Non-Staff] - Print Language: Citizen Of [place] Disposition Disposition: Home, Self Care
[2023-11-07] MEDS: Aspirin 81 MG TAB.CHEW 324 MG PO (13:56)
[2023-11-07] MEDS: Nitroglycerin SL (ED/IMG/CATH) 0.4 MG TABLET SL ×2 (14:04→14:12)
[2023-11-07 14:05] LABS: Absolute Lymphocyte Count 3.53 X10^3/uL (0.83-4.51); Absolute Neutrophil Count 6.1 X10^3/uL (2.0-7.7); Basophil# 0.11 X10^3/uL; Basophil% 1.1 % (0-1); Eosinophil# 0.12 X10^3/uL; Eosinophils% 1.1 % (0-5); Hematocrit 42.2 % (40-54); Hemoglobin 13.9 g/dL (13.0-16.5); Lymphocyte # 3.53 X10^3/ul (0.83-4.51); Lymphocyte % 33.7 % (19-41); Mean Corp Hgb Conc 32.9 g/dL (32-36); Mean Corpuscular Hgb 26.4 pg (27.0-32.0); Mean Corpuscular Volume 80.2 fL (80-94); Monocyte# 0.62 X10^3/uL; Monocyte% 5.9 % (0-10); NRBC Flagged by Analyzer 0 % (0-5); Neutrophil # 6.07 X10^3/uL (2.7-7.7); Platelet Count 355 K/mm3 (150-450); RBC Distribution Width SD 37.3 fl (35.1-43.9); Red Blood Count 5.26 M/mm3 (4.6-6.2); White Blood Count 10.5 K/mm3 (4.4-11.0)
--- NOTE | 2023-11-07 14:15 | RAD_ITS ---
STUDY: X-RAY CHEST REASON FOR EXAM: Male, 38 years old. Chest pain TECHNIQUE: Single AP portable view of the chest. COMPARISON: Comparison is made with prior study dated January 22, 2020. FINDINGS: EKG electrodes are seen. The lungs are clear and expanded. There is no demonstrated pleural abnormality. Normal size heart. Normal mediastinum and rosalva. Normal visualized pulmonary arteries. Normal visualized aortic arch and descending thoracic aorta. Normal visualized thoracic spine. Normal visualized ribs, clavicles, and shoulders. There is no demonstrated abnormality of the visualized soft tissue structures of the upper abdomen. RAD/Chest 1 View (Portable) IMPRESSION: Normal x-ray examination of the chest. Electronically Signed: Jimmie Alcantar MD at 14:29 EDT ,
[2023-11-07 14:19] LABS: Anion Gap 8 (5-15); BUN 11 mg/dL (7-18); BUN/Creat Ratio 12.4 RATIO (10-20); Calcium,Total 8.7 mg/dL (8.5-10.1); Chloride 105 mmol/L (98-107); Creatinine, Serum 0.89 mg/dL (0.70-1.30); EST Glomerular Filtration Rate 102 mL/min (>60); Est Glom Filt Rate - Afr Amer 123 mL/min (>60); Estimated Creatinine Clearance 141.72 ml/min; Glucose 103 mg/dL (74-106); Potassium 3.7 mmol/L (3.5-5.1); Sodium Level 137 mmol/L (136-145); Troponin-I HS (w/2H Reflex) 70 pg/mL (3.0-78.0)
[2023-11-07 15:59] LABS: Reflex Troponin-HS? (from REC) Y
[2023-11-07 16:41] LABS: Troponin-I HS 60 pg/mL (3.0-78.0)
== END 2023-11-07 17:18 | disposition home or self-care (01) ==
PROVIDERS: Emergency Provider Emergency Medicine; PCP Family Medicine; Visit Provider Emergency Medicine
DX: R07.2 Precordial pain (principal); R50.9 Fever, unspecified; R06.02 Shortness of breath; R03.0 Elevated blood-pressure reading, without diagnosis of hypertension; R11.2 Nausea with vomiting, unspecified; R61 Generalized hyperhidrosis; R05.9 Cough, unspecified; R42 Dizziness and giddiness; K21.9 Gastro-esophageal reflux disease without esophagitis; Z79.899 Other long term (current) drug therapy
CPT/HCPCS: 71045; 80048; 84484; 85025; 93005; 99284; A4216